=== PATIENT | male | born 1970 | race Two or more races ===

== ENCOUNTER 2024-11-20 06:11 | Day surgery (SDC) | payer OTHER ==
[2024-11-14 12:29] VITALS: BP 123/83
[~2024-11-20] VITALS: Ht 162.6 cm; Wt 69.9 kg
[~2024-11-20 06:11] MED LIST: LEVOTHYROXINE25 MCG PO; PROAIR RESPICL90 MCG IH; ROSUVASTATIN CA40 MG PO
[2024-11-20] MEDS ORDERED: POVIDONE-IODINE SCRUB 118 ML BOTT TOP ONE (10:45)
[2024-11-20] MEDS ORDERED: CEFAZOLIN SODIUM 1,000 MG VIAL IV ONE (10:45)
[2024-11-20] MEDS ORDERED: BUPIVACAINE HCL 30 ML VIAL IV ONE (10:45)
[2024-11-20] MEDS ORDERED: ENOXAPARIN SODIUM 40 MG/0.4 ML SYRINGE SUBCUTANEO ONE (10:45)
[2024-11-20] MEDS ORDERED: TYLENOL325 MG PO (12:23)
[2024-11-20] MEDS ORDERED: NEURONTIN800 MG PO (12:23)
[2024-11-20] MEDS ORDERED: BACTRIM DS TAB1 EACH PO (12:24)
[2024-11-20] MEDS ORDERED: CITRATE OF MAG296 ML PO (12:24)
[2024-11-20] MEDS ORDERED: PERCOCET 5-3251 EACH PO (12:25)
[2024-11-20] MEDS ORDERED: TAMS0.4C PO (12:25)
[2024-11-20] MEDS ORDERED: MORPHINE SULFATE 4 MG/ML VIAL IV ONE ×2 (13:10→14:25)
== END 2024-11-20 17:10 | disposition home or self-care (01) ==
LOC: CIR.AMB 06:11
PROVIDERS: ATTEND Surgery
DX: K40.91 Unilateral inguinal hernia, without obstruction or gangrene, recurrent (principal); K42.9 Umbilical hernia without obstruction or gangrene; Z91.013 Allergy to seafood
CPT/HCPCS: 49651; 15734; C1781